=== PATIENT | female | born 1950 | race Caucasian/White ===

== ENCOUNTER 2018-03-25 13:49 | Outpatient (CLI) | payer MEDICARE, BC, SELFPAY ==
[2018-03-25 14:20] LABS: HCT 43.4 % (36.0-46.0); HGB 14.5 g/dL (12.0-15.5); Mean Corp. HGB Concentration 33.4 g/dL (32.0-36.0); Mean Corpuscular Hemoglobin 31.9 pg (27.0-33.0); Mean Corpuscular Volume 95.4 fL (80-95); Mean Platelet Volume 11.6 fL (8.0-11.0); Platelet Count 173 x1000/uL (130-400); RBC 4.55 m/cumm (4.00-5.20); RBC Distribution Width 12.3 % (11.7-14.6)
[2018-03-25 15:39] LABS: ALT 20 U/L (12-78); AST 17 U/L (15-37); Albumin 4.6 g/dL (3.4-5.0); Alkaline Phosphatase 77 U/L (46-116); Anion Gap 9.1 mmol/L (3-11); BUN 17 mg/dL (7-18); Bilirubin, Total 0.5 mg/dL (0.2-1.0); CO2 28.9 mmol/L (21.0-32.0); CREATININE 0.86 mg/dL (0.55-1.02); Calcium 9.5 mg/dL (8.5-10.1); Chloride 102 mmol/L (98-107); Cholesterol 226 mg/dL (50-200); Glucose 91 mg/dL (70-100); HDL Cholesterol 77 mg/dL (40-60); LDL CHOLESTEROL 123 mg/dL (<100); Potassium 4.7 mmol/L (3.5-5.1); Sodium 140 mmol/L (136-145); Total Protein 7.3 g/dL (6.4-8.2); Triglyceride 121 mg/dL (30-150)
[2018-03-27 08:01] LABS: Vitamin D 25 Total 67.7 ng/ml (30-100)
== END 2018-03-25 14:09 ==
PROVIDERS: PCP Student in an Organized Health Care Education/Training Program; Visit Provider Student in an Organized Health Care Education/Training Program
DX: E55.9 Vitamin D deficiency, unspecified (principal); D64.9 Anemia, unspecified; E78.5 Hyperlipidemia, unspecified; E86.0 Dehydration
CPT/HCPCS: 80053; 80061; 82306; 83721; 85027; 84443

== ENCOUNTER → 2019-01-23 09:13 | Outpatient (BNVA) | payer MEDICARE, BC, SELFPAY | PROVIDERS: PCP Student in an Organized Health Care Education/Training Program; Referring Provider Student in an Organized Health Care Education/Training Program; Visit Provider Physical Therapy Assistant | DX: Z12.11 Encounter for screening for malignant neoplasm of colon (principal); Z86.010 Personal history of colon polyps ==

== ENCOUNTER 2019-02-06 10:02 | Day surgery (SDC) | payer MEDICARE, BC, SELFPAY ==
[2019-02-06 10:19] VITALS: BP 108/64; PULSE 70; RESP 16; TEMP 36; O2SAT 100
[2019-02-06] MEDS: Lactated Ringers 1,000 ML 80 ML IV (11:12)
--- NOTE | 2019-02-06 11:52 | BOWEL_PTH ---
PATIENT: Adrianna Tomlin LOC: [facility] U#:[id number] AGE/SX: 68/F ROOM: RE02/06/[address]: Ca Live MD : 1950 BED: DIS: 02/06/2019 SPEC #: [id number] RECD: 02/06/19 12:55 STATUS: ELAN REQ #: [id number] CHONG: 02/06/19 11:[address]: Ca Live DEPT: Surgical Specimen RECD BY: Jesika Renner ENTERED: 02/06/19 12:56 SP TYPE: Bowel OTHR DR: Sheila Shah DO Tissues: 1 - BIOPSY BOWEL Procedures: GROSS AND MICRO LEVEL 4 Comments: [id number]
--- NOTE | 2019-02-06 12:15 | W.PM.DSUDISC ---
Discharge Plan Disposition Patient Disposition: HOME Condition: Good Discharge Details Reason For Visit: Colonoscopy Attending Provider: Ca Live Primary Care Provider: Sheila Shah Home Meds and New Rx's Prescriptions: Continued cholecalciferol (vitamin D3) 1,000 UNIT capsule 1,000 unit PO DAILY RF: 0 Varicella-Zoster Ge/As01b/Pf [Shingrix Vial Kit] 50 MCG INJ 50 mcg IM ONCE Qty: 1 RF: 0 lisinopril 10 mg tablet 5 mg PO DAILY 180 Days Qty: 90 RF: 0 Discharge Instructions Additional Instructions: Findings: One small polyp was removed. My office will contact you with biopsy results. Follow up: Plan for a colonoscopy in 5 years Please call if you develop: fevers >101.5 Nausea or Vomiting Abdominal pain that is not transient DAY SURGERY UNIT POST COLONOSCOPY INSTRUCTIONS 1. Because there will be medication in your system for the next 24 hours, you may feel a little sleepy. Your coordination will be affected. Therefore: a. Do not drive or operate dangerous equipment for 24 hours. b. Do not drink alcohol beverages for 24 hours (not even beer). c. Plan to go home and rest for the day. 2. Generally there are no restrictions on your activity after a day or so has gone by, but you may feel a bit fatigued for a few days. 3 After you arrive home you may have a light meal and return to a normal diet as you can tolerate it without feeling sick to your stomach. 4. After surgery, you may feel pain or discomfort. This should be only transient, but if it persists please contact your doctor. 5. If there are any questions regarding the findings of your procedure, please feel free to contact your doctor. 6. If you are unable to contact your doctor with a problem, contact the hospital at [phone]. 7. Continue all your regular medications unless directed otherwise. I understand the above instructions and have no questions. Signature of Patient or Responsible Adult Escort Date/Time Name of Responsible Adult Escort Signature of Nurse Date/Time Activity:: Activity as Tolerated Diet:: As Tolerated Discharge Orders Discharge Orders: Discharge Order (Routine); Ordered 02/06/19 Ordered By: Ca Live DS: Diagnosis Discharge Diagnosis (1) Colon polyp: Status: Acute
[2019-02-06 12:38] VITALS: BP 127/66; PULSE 65; RESP 16; TEMP 36.1; O2SAT 100
--- NOTE | 2019-02-09 10:01 | COLE_ITS ---
DATE OF PROCEDURE: February 06, 2019 PREOPERATIVE DIAGNOSIS: History of colon polyp. POSTOPERATIVE DIAGNOSIS: Colon polyp. PROCEDURE: Colonoscopy with polypectomy. SURGEON: Ca Live M.D. ANESTHESIA: General. INDICATIONS: This is a 68-year-old woman whose last colonoscopy in 2013 showed a polyp. She has no family history of colon cancer and is asymptomatic. PROCEDURE: She was placed in the left Gonzalez position. Propofol was titrated to sedation. Digital re ctal examination revealed no abnormalities. The scope was advanced to the cecum without difficulty. The ileocecal valve and appendiceal orifice were clearly identified. The scope was slowly withdrawn with no abnormalities seen within the ascending or transverse colon. In the proximal descending col on there was a < 1 cm polyp that was removed with snare polypectomy with cautery and retrieved for pa thology. No other abnormalities were seen throughout the descending, sigmoid colon or rectum, includ ing on retroflex view. She tolerated the procedure well and was stable to recovery. She will need a follow-up colonoscopy again in five years. cc: Sheila Shah D.O.
== END 2019-02-06 13:35 | disposition home or self-care (01) ==
PROVIDERS: PCP Student in an Organized Health Care Education/Training Program; Visit Provider Surgery
PROC: 0DJD8ZZ Inspection of Lower Intestinal Tract, Via Natural or Artificial Opening Endoscopic (ICD-10-PCS; CPT 45378; principal; 2019-02-06 11:30)
DX: Z12.11 Encounter for screening for malignant neoplasm of colon (principal); D12.4 Benign neoplasm of descending colon; Z86.010 Personal history of colon polyps; I10 Essential (primary) hypertension
CPT/HCPCS: 45385; 88305; J2405

== ENCOUNTER 2019-04-20 01:26 | Outpatient (CLI) | payer MEDICARE, BC, SELFPAY ==
--- NOTE | 2019-04-20 09:13 | DI.US_ITS ---
EXAM: US HERNIA CLINICAL HISTORY: evaluate for size, risk; r/o acute pathology, UMBILICAL HERNIA K42.9 TECHNIQUE: Ultrasound performed using standard protocol. COMPARISON: No exams were available for comparison FINDINGS: No hernia is demonstrated on the images provided. The umbilical region was scanned.
== END 2019-04-20 01:46 ==
PROVIDERS: PCP Student in an Organized Health Care Education/Training Program; Visit Provider Student in an Organized Health Care Education/Training Program
DX: K42.9 Umbilical hernia without obstruction or gangrene (principal)
CPT/HCPCS: 76857

== ENCOUNTER 2020-09-30 16:20 | Outpatient (CLI) | payer MEDICARE, BC, SELFPAY ==
--- NOTE | 2020-09-30 16:15 | RT.EKG_ITS ---
APPROVED REPORT Exam: Resting ECG Reason for Exam: palpitations, breathlessness Patient Location: O HR:77 bpm ECG Measurements Heart Rate 77 AXIS ND 141 P 76 QRSd 94 QRS 55 QT 389 T 29 QTc 441 Conclusion Sinus rhythm...normal P axis, V-rate 60- 99 Multiple ventricular premature complexes...V complexes w/ short R-R intervls Probable left ventricular hypertrophy...multiple LVH criteria
== END 2020-09-30 16:21 | disposition home or self-care (01) ==
LOC: DI.KIM 16:22
PROVIDERS: PCP Student in an Organized Health Care Education/Training Program; Visit Provider Student in an Organized Health Care Education/Training Program
DX: R00.2 Palpitations (principal); R06.02 Shortness of breath
CPT/HCPCS: 93010

== ENCOUNTER 2020-10-26 10:25 | Outpatient (CLI) | payer MEDICARE, BC, SELFPAY ==
--- NOTE | 2020-11-10 12:29 | ZIOP_ITS ---
Date of service: 11/10/20 Time of Service: 12:29 14 Day [employer] Supervisor Referring Provider:: Shayna Indications:: palp Note: This is a 14-day monitor order for indication of palpitations. ?The patient was in normal sinus rhythm for the majority the recording with an average heart rate of 63 bpm. ?The patient had 23 brief runs of supraventricular tachycardia with the longest lasting 27 beats. None of these were recorded as symptomatic. ?The patient had no episodes of ventricular tachycardia and rare PVCs/PACs ?There were no episodes of atrial fibrillation, no pauses greater than 3 seconds and no evidence of high degree heart block. ?There were no patient recorded events.
== END 2020-10-26 10:26 | disposition home or self-care (01) ==
LOC: RT 10:29
PROVIDERS: PCP Student in an Organized Health Care Education/Training Program; Visit Provider Student in an Organized Health Care Education/Training Program
DX: I49.8 Other specified cardiac arrhythmias (principal)
CPT/HCPCS: 93246

== ENCOUNTER 2020-11-10 12:29 | Outpatient (CLI) | payer MEDICARE, BC, SELFPAY | END 2020-11-10 12:30 | LOC: CARDO 11-21 16:15 | PROVIDERS: PCP Student in an Organized Health Care Education/Training Program; Referring Provider Student in an Organized Health Care Education/Training Program; Visit Provider Internal Medicine Cardiovascular Disease | DX: I49.8 Other specified cardiac arrhythmias (principal); I47.1 Supraventricular tachycardia | CPT/HCPCS: 93248 ==

== ENCOUNTER 2020-11-15 02:42 | Outpatient (CLI) | payer MEDICARE, BC, SELFPAY ==
--- NOTE | 2020-11-15 06:45 | DI.MAMMO_ITS ---
Exam(s) MAMMO SCREENING EXAM: MAMMO SCREENING CLINICAL HISTORY: screening,z12,39 TECHNIQUE: Mammograms were interpreted according to the usual protocol including computer analysis w [facility] CAD system, tomosynthesis and C-view imaging. COMPARISON: FINDINGS: The breasts are heterogeneously dense. No dominant mass or clumped microcalcification is identified in either breast. The current examination is compared with previous examinations including October 2017 and there has been no gross interval change in appearance in comparison with the prior studies. IMPRESSION: No specific evidence of malignancy at this time. Routine screening examinations are suggested at yea rly intervals in this age group according to the ACS ACR guidelines. BI-RADS Category 1 - Negative Breast Density - Category C - Heterogeneously dense
--- NOTE | 2020-11-15 09:35 | DI.US_ITS ---
APPROVED REPORT EXAM: Comprehensive 2D, Doppler, and color-flow Echocardiogram Patient Location: Out-Patient [facility] Scientist: Elva Champagne RDCS (AE) Indications: Evaluate Cardiac function, HTN, SOB Other Information Study Quality: Good Conclusion Left Ventricle : The left ventricle is normal size. The left ventricular systolic function is normal. The left ventricular ejection fraction is within the normal range. There is normal left ventricular wall thickness. There is normal LV segmental wall motion. The left ventricular diastolic function is normal. There is no ventricular septal defect visualized. Right Ventricle : The right ventricle is normal size. The right ventricular systolic function is norm al. The RVSP is 28.9 mmHg. Atria : The left atrium size is normal. The right atrium size is normal. Aortic Valve : The aortic valve is normal in structure. Aortic valve is trileaflet. Mild aortic regur gitation. There is no aortic valvular stenosis. Mitral Valve : The mitral valve is normal in structure. Mild mitral regurgitation. No evidence of cassia ral valve stenosis. Great Vessels : The aortic root is normal in size. The ascending aorta is normal in size. Aortic arch is normal in caliber. IVC is normal in size and collapses >50% with inspiration. Please see remainder of study for further details Wall motion Left Ventricle The left ventricle is normal size. The left ventricular systolic function is normal. The left ventric ular ejection fraction is within the normal range. There is normal left ventricular wall thickness. T here is normal LV segmental wall motion. The left ventricular diastolic function is normal. There is no ventricular septal defect visualized. LVEF is 60%. Right Ventricle The right ventricle is normal size. The right ventricular systolic function is normal. The RVSP is 28 .9 mmHg. Atria The left atrium size is normal. The right atrium size is normal. The interatrial septum is intact wit h no evidence for an atrial septal defect. Aortic Valve The aortic valve is normal in structure. Aortic valve is trileaflet. There is no aortic valvular sten osis. Mild aortic regurgitation. Mitral Valve The mitral valve is normal in structure. No evidence of mitral valve stenosis. Mild mitral regurgitat ion. Moderate mitral valve prolapse. Tricuspid Valve The tricuspid valve is normal in structure. There is no tricuspid valve stenosis. Mild tricuspid regu rgitation. Pulmonic Valve The pulmonary valve is normal in structure. There is no pulmonic valvular stenosis. Trace pulmonic re gurgitation. Great Vessels The aortic root is normal in size. The ascending aorta is normal in size. Aortic arch is normal in ca liber. IVC is normal in size and collapses >50% with inspiration. Pericardium There is no pericardial effusion. 2D Dimensions IVSD d PLAX 0.63 cm F: 0.6-1.0 LV Vol A2C d MOD 80.7 mL LVPW d PLAX 0.71 cm F: 0.6 - 1.0 LV Vol A4C d MOD 87.8 mL LVID d PLAX 4.36 cm F: 3.8 - 5.2 LA vol/ BSA A2C s A-L 28.5 mL/m2 LVDs 2.85 cm F: 2.2 - 3.5 LA vol/ BSA A4C s A-L 21.9 mL/m2 Ao Root d 3.04 cm F: 2.7 - 3.3 LA Vol/ BSA Biplane s A-L 28.0 mL/m2 RA Area A4C 12.10 cm2 LA Area A4C s MOD 12.77 cm2 RA Vol/ BSA A4C s A-L 20.7 mL/m2 LA Area A2C s MOD 16.30 cm2 Ao Asc Diam d 3.04 cm F: 2.3 - 3.1 LV EF A4C MOD 60.0 % LV EF Teichholz 62.7 % LV EF A2C MOD 60.6 % LVEF (Kelley's) 58.11 % F: 54 - 74 LV EF Biplane MOD 58.1 % LV Volume 70.28 mL F: 46 - 106 SV 49.64 mL LV Volume Index 45.34 mL/m2 F: 29 - 61 SV Index 32.04 mL/m2 LV Vol Biplane MOD 85.4 mL FS 33.65 % M-Mode TAPSE 2.37 cm (M/F) >1.7 LV Diastology MV E' medial 0.046 (>0.07 m/s) E/A Ratio 0.8 LV E/e MED 14.25 (<14) MV E Vmax 0.66 (0.4-1.3 m/s) MV E' lateral 0.065 (>0.1 m/s) MV A Vmax 0.85 (0.4-1.3 m/s) LV E/e LAT 10.20 (<14) MV E/A Ratio 0.74 MV E/E' medial 14.29 MV E/E' lateral 10.24 Aortic Valve LVOT Area 2.54 cm2 AoV Area Vmax 2.02 cm2 LVOT Vmax 0.88 m/s AoV Area/ BSA (Vmax) 1.30 cm2/m2 LVOT Mean Alex. 0.54 m/s BO Mean Alex. 1.81 cm2 LVOT Peak Grad 3.1 mmHg BO Mean Alex. Index 1.17 cm2/m2 LVOT Mean Grad 1.4 mmHg AR DT 4429 msec LVOT VTI 0.221 m AR PHT 1285 msec LVOT Diam s 1.75 cm AoV Vmax 1.10 m/s Velocity Ratio 0.80 AoV Mean Alex. 0.76 m/s AoV Peak Grad 4.9 mmHg LVOT SV 55.91 mL AoV Mean Grad 2.6 mmHg AoV VTI 0.272 m AoV Area VTI 2.06 cm2 AoV Area/ BSA (VTI) 1.33 cm/m2 Mitral Valve MV DT 413 (160-240 msec) MR Vmax 7.04 m/s MV PHT 120 msec MR VTI 2.440 m MV Area PHT 1.84 cm2 MR Peak Grad 198.2 mmHg MV VTI 0.270 m MR Mean Grad 151.1 mmHg MV VTI Annulus 0.275 m MR PISA Radius 0.43 cm MV Area VTI 2.10 (4.0-6.0 cm2) MR EROA 0.06 cm2 MR Aliasing Velocity 0.35 m/s MR PISA 1.14 cm2 Pulmonary Valve PV Vmax 0.57 (0.5-1.5 m/s) RVOT Peak Gr. 1.12 mmHg PV Peak Grad 1.3 mmHg RVOT Mean Gr. 0.60 mmHg PV Mean Grad 0.8 mmHg RVOT VTI 0.132 m PV VTI 0.143 m RVOT Vmax 0.53 m/s Tricuspid Valve TR Peak Grad 25.8 mmHg TR Vmax 2.54 m/s RA Pressure 3.00 mmHg RVSP (TR) 28.9 mmHg
== END 2020-11-15 03:02 ==
PROVIDERS: PCP Student in an Organized Health Care Education/Training Program; Visit Provider Student in an Organized Health Care Education/Training Program
DX: I10 Essential (primary) hypertension (principal); R06.02 Shortness of breath; Z12.39 Encounter for other screening for malignant neoplasm of breast; I08.3 Combined rheumatic disorders of mitral, aortic and tricuspid valves
CPT/HCPCS: 77063; 77067; 93306

== ENCOUNTER 2021-02-07 03:32 | Outpatient (CLI) | payer MEDICARE, BC, SELFPAY ==
[2021-02-07 16:16] LABS: HCT 40.4 % (36.0-46.0); HGB 13.3 g/dL (11.2-15.7); MCHC 32.9 % (32.0-36.0); MCV 94.2 fL (80-95); Platelet Count 168 10^3/uL (130-400); RBC 4.29 10^6/uL (3.93-5.22); RDW 12.1 % (11.7-14.6); RDW-SD 42.2 fL; WBC 4.55 10^3/uL (4.4-10.8)
[2021-02-07 17:54] LABS: BUN 16 mg/dL (7-18); CREATININE 0.8 mg/dL (0.55-1.02); Calcium 9.2 mg/dL (8.5-10.1); Calculated LDL 122 mg/dL (<100); Chloride 103 mmol/L (98-107); Cholesterol 216 mg/dL (<200); Glucose 86 mg/dL (74-106); HDL Cholesterol 60 mg/dL (40-60); Potassium 4.4 mmol/L (3.5-5.1); Sodium 141 mmol/L (136-145); TSH (W/Ref FT4) 3.03 uIU/mL (0.36-3.74); Triglyceride 174 mg/dL (<150); Vitamin B12 243 pg/mL (193-986)
[2021-02-07 18:38] LABS: Folate > 20.0 ng/mL (8.6-20.0)
[2021-02-09 00:32] LABS: Vitamin D 25 Total 71.5 ng/mL (30-100)
== END 2021-02-07 03:33 | disposition home or self-care (01) ==
LOC: LBO 03:32
PROVIDERS: PCP Student in an Organized Health Care Education/Training Program; Visit Provider Student in an Organized Health Care Education/Training Program
DX: I10 Essential (primary) hypertension (principal); E78.5 Hyperlipidemia, unspecified; R06.02 Shortness of breath; E46 Unspecified protein-calorie malnutrition; D64.9 Anemia, unspecified; M81.0 Age-related osteoporosis without current pathological fracture
CPT/HCPCS: 36415; 80048; 80061; 82306; 85027; 82607; 82746; 84443

== ENCOUNTER 2021-06-22 01:35 | Outpatient (CLI) | payer MEDICARE, BC, SELFPAY ==
--- NOTE | 2021-06-22 15:17 | DI.DEXA_ITS ---
Exam(s) XR DEXA BONE DENSITY W/WO GAGANDEEP EXAM: XR DEXA BONE DENSITY W/WO GAGANDEEP CLINICAL HISTORY: evaluate severity of osteoporosis,m81.0 TECHNIQUE: COMPARISON: No exams were available for comparison FINDINGS: DEXA scan was performed according to the usual protocol. Please see the accompanying data sheets. F indings for left hip scanning are T-score -3.2 with left femoral neck T-score -3.2. Lumbar spine scanning shows T-score -1.6. Left forearm scanning shows T-score -3.7. IMPRESSION: The measurements are consistent with osteoporosis according to WHO criteria. The lateral vertebral s canogram shows no evidence of a vertebral compression fracture. RADIATION DOSE DELIVERED: Total DLP
== END 2021-06-22 01:55 ==
PROVIDERS: PCP Student in an Organized Health Care Education/Training Program; Visit Provider Student in an Organized Health Care Education/Training Program
DX: M81.0 Age-related osteoporosis without current pathological fracture (principal); Z13.820 Encounter for screening for osteoporosis
CPT/HCPCS: 77080

== ENCOUNTER 2021-09-05 02:40 | Outpatient (CLI) | payer MEDICARE, BC, SELFPAY ==
[2021-09-05 16:55] LABS: Calculated LDL 113 mg/dL (<100); Cholesterol 195 mg/dL (<200); HDL Cholesterol 69 mg/dL (40-60); Triglyceride 66 mg/dL (<150)
== END 2021-09-05 02:41 | disposition home or self-care (01) ==
LOC: LBO 02:40
PROVIDERS: PCP Student in an Organized Health Care Education/Training Program; Visit Provider Student in an Organized Health Care Education/Training Program
DX: I10 Essential (primary) hypertension (principal)
CPT/HCPCS: 36415; 80061

== ENCOUNTER 2022-07-04 03:11 | Outpatient (CLI) | payer MEDICARE, BC, SELFPAY ==
[2022-07-04 10:21] LABS: Anion Gap 7.2 mmol/L (3-11); BUN 16 mg/dL (7-18); CO2 29.8 mmol/L (21.0-32.0); CREATININE 0.9 mg/dL (0.55-1.02); Calcium 9.4 mg/dL (8.5-10.1); Calculated LDL 139 mg/dL (<100); Chloride 104 mmol/L (98-107); Cholesterol 234 mg/dL (<200); Estimated GFR 68.77 (mL/min/1.73m2); Glucose 98 mg/dL (74-106); HDL Cholesterol 84 mg/dL (40-60); Potassium 4.6 mmol/L (3.5-5.1); Sodium 141 mmol/L (136-145); Triglyceride 55 mg/dL (<150)
== END 2022-07-04 03:12 | disposition home or self-care (01) ==
LOC: LBO 03:14
PROVIDERS: PCP Student in an Organized Health Care Education/Training Program; Visit Provider Student in an Organized Health Care Education/Training Program
DX: I10 Essential (primary) hypertension (principal); R79.89 Other specified abnormal findings of blood chemistry; M81.0 Age-related osteoporosis without current pathological fracture
CPT/HCPCS: 36415; 80048; 80061

== ENCOUNTER → 2022-12-26 01:47 | Outpatient (CLI) | payer MEDICARE, BC, SELFPAY ==
--- NOTE | 2022-12-26 07:30 | DI.MAMMO_ITS ---
Exam(s) MAMMO SCREENING EXAM: MAMMO SCREENING CLINICAL HISTORY: screening,z12.39. TECHNIQUE: Bilateral full field digital CC and MLO mammographic images were obtained with 3D tomosyn thesis and utilizing computer aided detection (CAD). COMPARISON: Prior mammograms were reviewed. FINDINGS: The fibroglandular tissue pattern is again noted be moderately dense. There are no CAD designations. New right breast findings. In the left breast on the CC view there is asymmetric density measuring 5 x 4 mm located 5 cm in from the nipple, lateral of center. This is more evident than on prior mammograms. Spot view recommende d. There are no malignant-appearing microcalcification groups in this region or elsewhere in either [address] There is no significant architectural distortion nor skin thickening-retraction. IMPRESSION: 1. No radiographic evidence of malignancy in the right breast. 2. Asymmetric density-possible nodule the left breast. Spot compression CC view and ultrasound arnie mmended. BI-RADS Category 0 - Assessment Incomplete: Need additional imaging evaluation Breast Density - Category C - Heterogeneously dense Breast density Category C or D implies that the patient has dense breast tissue. Dense breast tissue can make it harder to find cancer on a mammogram. Dense breast tissue is also associated with an incr eased risk of breast cancer. This information about the result of the mammogram report was provided to the patient to raise their awareness. Use this report when you speak with the patient about their risks for breast cancer, which includes their family history. At that time, you may recommend additional screening tests (Ultrasoun d or MRI) as these tests may add significant information. A negative radiographic report should not delay biopsy if a dominant or clinically suspicious mass is present. Up to ten percent of cancers are not identified on mammography. A negative report may reinforce clinical impression. Adenosis and dense breasts may obscure an underlying neoplasm. False positive reports average 6 to 10%. Patient will receive a letter notifying them of these results.
== END ==
PROVIDERS: PCP Student in an Organized Health Care Education/Training Program; Visit Provider Student in an Organized Health Care Education/Training Program
DX: Z12.31 Encounter for screening mammogram for malignant neoplasm of breast (principal)
CPT/HCPCS: 77063; 77067

== ENCOUNTER → 2023-01-07 01:35 | Outpatient (CLI) | payer MEDICARE, BC, SELFPAY ==
--- NOTE | 2023-01-07 10:20 | DI.MAMMO_ITS ---
Exam(s) MAMMO SCREEN CALL BACK UNI US BREAST LT COMPLETE EXAM: MAMMO SCREEN CALL BACK UNI CLINICAL HISTORY: F/U MAMMO, ASYMMETRIC DENSITY POSSIBLE NODULE. TECHNIQUE: Unilateral spot mammographic images obtained with 3D tomosynthesisand utilizing computer aided detection (CAD). . Complete left breast Ultrasound was also performed, including all 4 quadrants, the retroareolar regio n, and the ipsilateral axilla. COMPARISON: Prior mammograms were reviewed. This additional imaging was performed due to findings described on the recent screening mammogram of 12/26/2022. FINDINGS: DIAGNOSTIC MAMMOGRAM: Additional mammographic views performed todayrender this area less concerning. COMPLETE LEFT BREAST ULTRASOUND: Ultrasound performed today reveals no evidence of solid or significant cystic lesions in all 4 quadra nts nor in the retroareolar region. Scanning of the ipsilateral axilla reveals no significant adenopathy. IMPRESSION: 1. No radiographic evidence of malignancy in left breast. 2. Negative complete left breast ultrasound Appropriate follow-up is to keep this patient on her yearly mammogram schedule, with earlier imaging if a self detected breast change is noted.. The patient was informed of these findings and recommendations by myself prior to leaving the [facility] ent today. BI-RADS Category 2 - Benign Findings Breast Density - Category C - Heterogeneously dense Breast density Category C or D implies that the patient has dense breast tissue. Dense breast tissue can make it harder to find cancer on a mammogram. Dense breast tissue is also associated with an incr eased risk of breast cancer. This information about the result of the mammogram report was provided to the patient to raise their awareness. Use this report when you speak with the patient about their risks for breast cancer, which includes their family history. At that time, you may recommend additional screening tests (Ultrasoun d or MRI) as these tests may add significant information. A negative radiographic report should not delay biopsy if a dominant or clinically suspicious mass is present. Up to ten percent of cancers are not identified on mammography. A negative report may reinforce clinical impression. Adenosis and dense breasts may obscure an underlying neoplasm. False positive reports average 6 to 10%. Patient will receive a letter notifying them of these results.
== END ==
PROVIDERS: PCP Student in an Organized Health Care Education/Training Program; Visit Provider Student in an Organized Health Care Education/Training Program
DX: Z12.31 Encounter for screening mammogram for malignant neoplasm of breast (principal); R92.8 Other abnormal and inconclusive findings on diagnostic imaging of breast
CPT/HCPCS: 76642; 77063; 77067

== ENCOUNTER → 2023-07-04 04:36 | Outpatient (CLI) | payer MEDICARE, BC, SELFPAY ==
--- NOTE | 2023-07-04 07:15 | DI.DEXA_ITS ---
Exam(s) XR DEXA BONE DENSITY W/WO GAGANDEEP EXAM: XR DEXA BONE DENSITY W/WO GAGANDEEP CLINICAL HISTORY: evaluate Tx/Rx (started ),osteoporosis,m81.0 TECHNIQUE: COMPARISON: CR XR DEXA BONE DENSITY W/WO GAGANDEEP from 06/22/2021 FINDINGS: Lateral Spine Image: Unremarkable. No compression deformities identified. Left hip: Total T-Score: -3.3. This compares to -3.2 on the prior examination. Total Z-Score: -1.7 T- and Z-scores: Findings are consistent with osteoporosis. Lumbar Spine: Total T-Score: -1.4. Compares to -1.6 on the prior examination. Total Z-Score: 0.8 T- and Z-scores: Findings are consistent with osteopenia. IMPRESSION: Osteoporosis is again seen in the left hip.
== END ==
PROVIDERS: PCP Student in an Organized Health Care Education/Training Program; Visit Provider Student in an Organized Health Care Education/Training Program
DX: M81.0 Age-related osteoporosis without current pathological fracture (principal); Z13.820 Encounter for screening for osteoporosis
CPT/HCPCS: 77080

== ENCOUNTER 2023-08-29 05:10 | Outpatient (CLI) | payer MEDICARE, BC, SELFPAY ==
[2023-08-29 13:03] LABS: Anion Gap 9.9 mmol/L (3-11); BUN 17 mg/dL (7-18); CO2 29.1 mmol/L (21.0-32.0); CREATININE 0.8 mg/dL (0.55-1.02); Calcium 9.3 mg/dL (8.5-10.1); Calculated LDL 127 mg/dL (<100); Chloride 102 mmol/L (98-107); Cholesterol 221 mg/dL (<200); Estimated GFR 78.72 (mL/min/1.73m2); Glucose 95 mg/dL (74-106); HDL Cholesterol 84 mg/dL (40-60); Potassium 4.7 mmol/L (3.5-5.1); Sodium 141 mmol/L (136-145); Triglyceride 53 mg/dL (<150)
[2023-08-29 13:17] LABS: Vitamin D 25 Total 62.1 ng/mL (30-100)
== END 2023-08-29 05:11 | disposition home or self-care (01) ==
LOC: LBO 05:10
PROVIDERS: PCP Student in an Organized Health Care Education/Training Program; Visit Provider Student in an Organized Health Care Education/Training Program
DX: I10 Essential (primary) hypertension; M81.0 Age-related osteoporosis without current pathological fracture; D64.9 Anemia, unspecified; Z13.220 Encounter for screening for lipoid disorders
CPT/HCPCS: 36415; 80048; 80061; 82306; 84443

== ENCOUNTER → 2024-01-27 09:54 | Outpatient (BNVA) | payer MEDICARE, BC, SELFPAY | PROVIDERS: PCP Student in an Organized Health Care Education/Training Program; Referring Provider Student in an Organized Health Care Education/Training Program; Visit Provider Surgery | DX: Z12.11 Encounter for screening for malignant neoplasm of colon (principal); Z86.0101 Personal history of adenomatous and serrated colon polyps; I10 Essential (primary) hypertension; E78.5 Hyperlipidemia, unspecified; M81.0 Age-related osteoporosis without current pathological fracture; E55.9 Vitamin D deficiency, unspecified; C43.71 Malignant melanoma of right lower limb, including hip | CPT/HCPCS: 99203 ==

== ENCOUNTER 2024-02-03 11:33 | Day surgery (SDC) | payer MEDICARE, BC, SELFPAY ==
--- NOTE | 2024-02-02 19:01 | W.PM.DSUDISC ---
Date of service: 02/03/24 Time of Service: 14:01 Discharge Plan Disposition Patient Disposition: Home Condition: Good Discharge Details Reason For Visit: screening colonoscopy Attending Provider: David Sterling Primary Care Provider: Sheila Shah Home Meds and New Rx's Prescriptions: Continued multivitamin Tablet 1 tab PO DAILY alendronate 70 mg tablet 70 mg PO QWEEK Qty: 52 2RF Rx Instructions: Continue with weekly dosing ondansetron 4 mg tablet,disintegrating 4 mg PO Q8H Qty: 7 0RF cholecalciferol (vitamin D3) 1,000 UNIT capsule 1,000 unit PO DAILY Discontinued polyethylene glycol 3350 17 gram/dose powder 238 g PO ONCE Qty: 238 0RF Rx Instructions: take per colonoscopy instructions bisacodyl [Dulcolax (bisacodyl)] 5 mg tablet,delayed release (DR/EC) 5 mg PO ONCE Qty: 4 0RF Rx Instructions: take per colonoscopy instructions Discharge Instructions Instructions: Diverticulosis Additional Instructions: Adrianna was very nice meeting you today, and I hope you are comfortable during the procedure, make a quick recovery. I did not find any tumors or polyps during today's colonoscopy. Incidentally, you do have a little bit of diverticulosis. Diverticula are little weak spots in the muscular part of the colon wall, this causes the inside lining to approach outwards. The condition of having these little pockets is known as diverticulosis, and if they become infected or inflamed and you experience pain, then we typically refer to that as diverticulitis. Hopefully, years never bother you. I have attached some basic information here about general approaches to diverticulosis. If you have any questions at all, please do not hesitate to ask. In light of the polyps that you had removed previously, I do recommend another 5-year interval for your next colonoscopy. 1. If tolerated, consume a soft, low fiber diet for 1-2 days. 2[address] Do not drive, drink alcohol, operate machinery, make critical decisions, or do activities that require coordination or balance for 24 hours. 3. Because air was put into your colon during the procedure, expelling air from your rectum (passing gas or farting) is normal. 4. You may not have a bowel movement for 1-3 days because of the colonoscopy prep. This is normal. 5. Go directly to the emergency room if you notice any of the following: Develop chills (warm to touch), or if you have a thermometer and your temperature is above 101 Difficulty breathing or difficultly swallowing Persistent vomiting Severe abdominal pain, other than gas cramps Severe chest pain Black, tarry stools Any bleeding ? exceeding one tablespoon 6. Call your physician if the site where your intravenous was started becomes red, swollen, painful, and warm to touch. 7. Your physician has reviewed your pre-procedure medications. Please continue to take those medications as previously ordered. You will be given specific information/education regarding any changes to your medications before leaving. Activity:: Activity as Tolerated Diet:: As Tolerated Discharge Orders Discharge Orders: Discharge Order (Routine); Ordered 02/02/24 Ordered By: David Sterling DS: Diagnosis Discharge Diagnosis (1) Encounter for screening colonoscopy: Status: Acute Asessment and Plan: Negative screening colonoscopy today, based on tubular adenoma in the past, recommend another 5-year interval for the next colonoscopy
--- NOTE | 2024-02-02 19:03 | COLE_ITS ---
Date of service: 02/03/24 Time of Service: 14:02 Colonoscopy Report Date of procedure: 02/03/24 Pre-op diagnosis general: screening colonoscopy Post-op diagnosis procedure note: other (Diverticulosis) Procedure: colonoscopy Surgeon: David Sterling Anesthesia Type: General:No Airway Estimated blood loss (mL): 0 Pathology: none sent Complications: None Disposition: same day Indications: Adrianna is a 73 year old woman with a history of adenomatous polyps. She needs a screening colonoscopy Prep: Miralax/Dulcolax Procedure Start Time: 13:37 Procedure End Time: 13:55 Retraction Time: 8 Findings: Sigmoid diverticulosis Procedure Description: After the induction of anesthesia, and with the patient in left lateral decubitus position, I began by performing an external anorectal exam.? Perineum and skin were normal, as was the anal verge.? There was no evidence of external hemorrhoids.? Next, I performed a digital rectal exam.? I did not appreciate any abnormal findings.? Next, I advanced a colonoscope into the rectal vault.? I performed retroflexion.? This appeared normal.? Using insufflation, I then advanced the colonoscope beyond the rectal folds and into the sigmoid colon before advancing towards the cecum.? There is some sigmoid diverticulosis.? The scope was noted to be in the cecum by identification of the ileocecal valve and appendiceal orifice.? I then began withdrawing the colonoscope using repeated irrigation as necessary for full evaluation of the colonic mucosa. ?Once the scope was withdrawn to the level of the rectum, great care was taken to examine portions of the rectal folds.? I saw no signs of tumors or polyps. Finally, the scope was withdrawn and the patient was brought to the same-day surgery recovery unit as the anesthetic wore off. ?The findings and instructions were shared with the patient prior to discharge. [place] Bowel Prep [place] Bowel Prep Right Colon: 3 Left Colon: 3 Transverse Colon: 3 Total Score: 9
[2024-02-03] VITALS (10 sets, daily range): BP systolic 139–150; BP diastolic 63–79; PULSE 54–71; RESP 14–18; TEMP 36.1–36.6; O2SAT 97–100; BMI 21.7
[2024-02-03] MEDS: Lactated Ringers 1,000 ML 80 ML IV (12:05)
--- NOTE | 2024-02-03 12:12 | ANES.PREOP_ITS ---
General Info Date of Service Date Performed: 02/03/24 Height: 5 ft 2 in Weight: 53.9 kg Body Mass Index (BMI): 21.7 Surgical Procedure: Operation Date: 02/03/24 12:50 Proposed Procedure Side Surgeon p Colonoscopy David Sterling MD Meds Allergies and Home Medications Allergies Allergy/AdvReac Type Severity Reaction Status Date / Time amoxicillin Allergy Unknown Hives Verified 02/03/24 11:53 codeine AdvReac Unknown Nausea Verified 02/03/24 11:53 Home Medication ?Medication ?Instructions ?Recorded cholecalciferol (vitamin D3) 25 1,000 unit PO DAILY 09/06/17 mcg (1,000 unit) capsule multivitamin 1 tab PO DAILY 08/15/21 alendronate 70 mg tablet 70 mg PO QWEEK #52 tabs 09/05/23 ondansetron 4 mg disintegrating 4 mg PO Q8H #7 tabs 01/27/24 tablet Current Visit Medications: Current Medications Generic Name Dose Route Start Last Admin Trade Name Freq PRN Reason Stop Dose Admin Ringer's Solution 1,000 mls @ 80 mls/hr 02/03/24 06:00 02/03/24 12:05 IV 02/03/24 23:59 80 mls/hr INFUSION AUGUSTINE Administration IV Miscellaneous Supplies 1 each 02/03/24 06:00 Iv Access IV 02/03/24 23:59 DIRECTED AUGUSTINE Ondansetron HCl 4 mg 02/02/24 19:04 Ondansetron 4 Mg/2 Ml Vial IVP 03/03/24 19:03 Q4H PRN PRN Nausea / Vomiting Sodium Chloride 0 ml 02/03/24 06:00 Normal Saline Flush 10 Ml Syr IV 02/03/24 23:59 PRN PRN Sodium Chloride 0 ml 02/03/24 06:00 Normal Saline 10 Ml Vial IJ 02/03/24 23:59 DIRECTED PRN Sterile Water 0 ml 02/03/24 06:00 Water,Injection,Sterile 10 Ml Vial IJ 02/03/24 23:59 DIRECTED PRN PFSH Active Problems Active Problems: Problem Status Onset Code Encounter for screening colonoscopy Acute Z12.11 Sensorineural hearing loss, bilateral Acute H90.3 Vitamin D deficiency Acute 04/23/17 E55.9 Osteoporosis Acute 11/21/12 M81.0 Bilateral nonpulsatile tinnitus Acute H93.13 Tinnitus of both ears Acute H93.13 Hypertension Chronic 02/2018 I10 Encounter for screening and preventative care Chronic 08/2018 Z00.00 Umbilical hernia Acute K42.9 Melanoma in situ of right shoulder Acute D03.61 Melanoma of right lateral thigh Resolved 07/18/17 C43.71 Colon polyp Acute K63.5 Allergic rhinitis Acute 04/23/17 J30.9 Anemia Acute 04/23/17 D64.9 Hyperlipidemia Acute 04/23/17 E78.5 Medical History Medical History SOB (shortness of breath) on exertion Resolved.. Holter/Echo WNL .. New, 09/2020 .. Not consistent, but notable when out of breath with a usually normal activity. Hypertension resolved .. tolerated ACEi when needed Surgical History Surgical History S/P tonsillectomy History of melanoma excision (11/29/20) right posterior shoulder, right upper leg Total Hysterectomy (~2002) , Ectopic (~1972) Cyst Removal (~1979) (R)Breast Colonoscopy - MAC (02/05/14) [facility] Tobacco Smoking/Tobacco Use Status: Never Alcohol Alcohol Intake: never Substance Use Substance use: Never Substance use type: does not use Vital Signs and Lab Results Vital Signs Most Recent Vital Signs in EMR: Most Recent Vital Signs Temp Pulse Resp BP Pulse Ox 36.1 C L 59 L 16 139/63 100 02/03/24 11:56 02/03/24 11:56 02/03/24 11:56 02/03/24 11:56 02/03/24 11:56 Lab Results Blood Type / Crossmatch: No Data to Display Complete Blood Count: No Data to Display Complete Metabolic Panel: No Data to Display Liver Function Panel: No Data to Display Coagulation Panel: No Data to Display Cardiac Panel: No Data to Display Arterial Blood Gas: No Data to Display Venous Blood Gas: No Data to Display Pancreas Panel: No Data to Display Thyroid Panel: No Data to Display Infectious Disease: No Data to Display Blood Cultures: No Data to Display Toxicology Panel: No Data to Display Imaging and Studies Imaging and Studies Study information below may be from another EMR and interpreted by another provider. Please see original notes in EMR for more complete details. EKG Summary: Reviewed Echocardiogram Summary: Patient Name: Adrianna Tomlin Unit #: [id number] Loc: DI Ordering Provider: ChagojennySheila DO Status: REG CLI Primary Care Provider: Sheila Shah DO Date of Exam: 11/15/20 Sex: F Admission Date: 11/15/20 : 1950 Age: 70 APPROVED REPORT EXAM: Comprehensive 2D, Doppler, and color-flow Echocardiogram Patient Location: Out-Patient [facility] Operator: Elva Champagne RDCS (AE) Indications: Evaluate Cardiac function, HTN, SOB Other Information Study Quality: Good Conclusion Left Ventricle : The left ventricle is normal size. The left ventricular systolic function is normal. The left ventricular ejection fraction is within the normal range. There is normal left ventricular wall thickness. There is normal LV segmental wall motion. The left ventricular diastolic function is normal. There is no ventricular septal defect visualized. Right Ventricle : The right ventricle is normal size. The right ventricular systolic function is normal. The RVSP is 28.9 mmHg. Atria : The left atrium size is normal. The right atrium size is normal. Aortic Valve : The aortic valve is normal in structure. Aortic valve is trileaflet. Mild aortic regurgitation. There is no aortic valvular stenosis. Mitral Valve : The mitral valve is normal in structure. Mild mitral regurgitation. No evidence of mitral valve stenosis. Great Vessels : The aortic root is normal in size. The ascending aorta is normal in size. Aortic arch is normal in caliber. IVC is normal in size and collapses >50% with inspiration. Please see remainder of study for further details Wall motion Left Ventricle The left ventricle is normal size. The left ventricular systolic function is normal. The left ventricular ejection fraction is within the normal range. There is normal left ventricular wall thickness. There is normal LV segmental wall motion. The left ventricular diastolic function is normal. There is no ventricular septal defect visualized. LVEF is 60%. Right Ventricle The right ventricle is normal size. The right ventricular systolic function is normal. The RVSP is 28.9 mmHg. Atria The left atrium size is normal. The right atrium size is normal. The interatrial septum is intact with no evidence for an atrial septal defect. Aortic Valve The aortic valve is normal in structure. Aortic valve is trileaflet. There is no aortic valvular stenosis. Mild aortic regurgitation. Mitral Valve The mitral valve is normal in structure. No evidence of mitral valve stenosis. Mild mitral regurgitation. Moderate mitral valve prolapse. Tricuspid Valve The tricuspid valve is normal in structure. There is no tricuspid valve stenosis. Mild tricuspid regurgitation. Pulmonic Valve The pulmonary valve is normal in structure. There is no pulmonic valvular stenosis. Trace pulmonic regurgitation. Great Vessels The aortic root is normal in size. The ascending aorta is normal in size. Aortic arch is normal in caliber. IVC is normal in size and collapses >50% with inspiration. Pericardium There is no pericardial effusion. 2D Dimensions IVSD d PLAX 0.63 cm F: 0.6-1.0LV Vol A2C d MOD 80.7 mL LVPW d PLAX 0.71 cm F: 0.6 - 1.0LV Vol A4C d MOD 87.8 mL LVID d PLAX 4.36 cm F: 3.8 - 5.2LA vol/ BSA A2C s A-L28.5 mL/m2 LVDs 2.85 cm F: 2.2 - 3.5LA vol/ BSA A4C s A-L21.9 mL/m2 Ao Root d 3.04 cm F: 2.7 - 3.3LA Vol/ BSA Biplane s A-L 28.0 mL/m2 RA Area A4C12.10 cm2LA Area A4C s MOD 12.77 cm2 RA Vol/ BSA A4C s A-L 20.7 mL/m2LA Area A2C s MOD 16.30 cm2 Ao Asc Diam d 3.04 cm F: 2.3 - 3.1LV EF A4C MOD 60.0 % LV EF Teichholz 62.7 %LV EF A2C MOD 60.6 % LVEF (Kelley's)58.11 % F: 54 - 74LV EF Biplane MOD 58.1 % LV Fbvbss91.28 mL F: 46 - 001UU28.64 mL LV Volume Index45.34 mL/m2 F: 29 - 61SV Index32.04 mL/m2 LV Vol Biplane MOD 85.4 mL FS33.65 % M-Mode TAPSE 2.37 cm (M/F) >1.7 LV Diastology MV E' medial0.046 (>0.07 m/s)E/A Ratio 0.8 LV E/e MED14.25 (<14)MV E Vmax 0.66 (0.4-1.3 m/s) MV E' lateral0.065 (>0.1 m/s)MV A Vmax 0.85 (0.4-1.3 m/s) LV E/e LAT10.20 (<14)MV E/A Ratio 0.74 MV E/E' medial 14.29 MV E/E' ifhesxy02.24 Aortic Valve LVOT Area2.54 cm2AoV Area Vmax2.02 cm2 LVOT Vmax 0.88 m/sAoV Area/ BSA (Vmax)1.30 cm2/m2 LVOT Mean Alex.0.54 m/sAVA Mean Alex.1.81 cm2 LVOT Peak Grad 3.1 mmHgAVA Mean Alex. Index1.17 cm2/m2 LVOT Mean Grad 1.4 mmHgAR DT 4429 msec LVOT VTI0.221 mAR PHT 1285 msec LVOT Diam s 1.75 cm AoV Vmax1.10 m/s Velocity Ratio 0.80 AoV Mean Alex.0.76 m/s AoV Peak Grad4.9 mmHg LVOT SV 55.91 mL AoV Mean Grad2.6 mmHg AoV VTI0.272 m AoV Area VTI2.06 cm2 AoV Area/ BSA (VTI)1.33 cm/m2 Mitral Valve MV DT 413 (160-240 msec)MR Vmax 7.04 m/s MV SBD573 msecMR VTI 2.440 m MV Area PHT 1.84 cm2MR Peak Grad 198.2 mmHg MV VTI 0.270 mMR Mean Grad 151.1 mmHg MV VTI Annulus 0.275 mMR PISA Radius 0.43 cm MV Area VTI 2.10 (4.0-6.0 cm2)MR EROA 0.06 cm2 MR Aliasing Velocity 0.35 m/s MR PISA 1.14 cm2 Pulmonary Valve PV Vmax 0.57 (0.5-1.5 m/s)RVOT Peak Gr.1.12 mmHg PV Peak Grad 1.3 mmHgRVOT Mean Gr.0.60 mmHg PV Mean Grad 0.8 mmHgRVOT VTI0.132 m PV VTI 0.143 mRVOT Vmax 0.53 m/s Tricuspid Valve TR Peak Grad 25.8 mmHgTR Vmax 2.54 m/s RA Pressure 3.00 mmHg RVSP (TR) 28.9 mmHg Ordered By: Sheila Shah DO CC: Dictated By: Lawrence Jarrell M.D. 11/15/20 1010 <Electronically signed by Lawrence Jarrell M.D. in OV> 11/15/20 1029 Transcribed By: Lawrence Jarrell MD This is privileged, confidential information intended only for the provider named. Any use or distribution by any person other than this provider is strictly prohibited. If you receive this report in error, please notify us immediately at [phone] and return the original report to us at the address above. Thank-you. Anesthesia Assessment and Plan Anesthesia History Personal History: No History of Anesthesia Complications Family History: No Family History of Anesthesia Complications Exercise Tolerance Exercise Tolerance: Metabolic Equivalents>4 Pertinent Negatives Pertinent Negatives: No Major Cardiovascular Symptoms or Complaints, No Major Pulmonary Symptoms or Complaints and No History of CVA/TIA Cardiac & Pulmonary Exam Cardiac Exam: Normal S1/S2 Heart Sounds Pulmonary Exam: Clear Bilateral Breath Sounds Implantable Cardiac Device Does patient have a Pacemaker or an ICD?: No Airway Exam Known Difficult Airway: No Mallampati Class: 2 Mouth Opening: Normal (> 3cm) Thyromental Distance: Greater than 3 cm Neck Range of Motion: Full ROM Neck Circumference: Normal Teeth Condition: Normal Dentition Airway Comments: Past history of 50ml of Bile in airway during last Colonoscopy. ASA Classification ASA Score: ASA 2 Emergency Case?: No NPO Status NPO Status: NPO Clears >2 hours, Solids >8 hours Anesthesia Plan Resuscitation Status: Full Code Anesthesia Technique: General Anesthesia Airway Planned: Endotracheal Tube Monitors Used: Standard Monitors Preoperative Comments:: Past history of 50ml of Bile in airway during last Colonoscopy, also vomited in PACU postop. Patient feeling good today, however due to past event I discussed my wish to edge on the side of safety and intubate today for airway protection during this colonoscopy.
--- NOTE | 2024-02-03 14:24 | W.ANESPOSTOP ---
Postoperative Evaluation Date, Time and Location Date Performed: 02/03/24 Time Performed: 14:20 Patient Location: PACU Vital Signs Most Recent Imported Vital Signs: Most Recent Vital Signs Temp Pulse Resp BP Pulse Ox 36.6 C 66 14 141/79 H 98 02/03/24 14:16 02/03/24 14:15 02/03/24 14:15 02/03/24 14:15 02/03/24 14:15 Pain Score Most Recent Pain Score: Most Recent Pain Score Pain Level 0 02/03/24 14:16 Assessment Mental Status: Awake (Alert & Oriented to Patient Baseline) Airway and Respiratory Function: Patent airway with normal (patient baseline) respiratory exam Cardiovascular Function: Hemodynamically Stable Hydration Status: Adequately Hydrated Nausea & Vomiting: No Nausea or Vomiting Pain: Pt. Denies Any Pain Peripheral Nerve Block: Patient did not receive a nerve block
== END 2024-02-03 15:06 | disposition home or self-care (01) ==
PROVIDERS: PCP Student in an Organized Health Care Education/Training Program; Visit Provider Surgery
PROC: 0DJD8ZZ Inspection of Lower Intestinal Tract, Via Natural or Artificial Opening Endoscopic (ICD-10-PCS; CPT 45378; principal; 2024-02-03 12:45)
DX: Z12.11 Encounter for screening for malignant neoplasm of colon (principal); K57.30 Diverticulosis of large intestine without perforation or abscess without bleeding; I10 Essential (primary) hypertension; Z86.0101 Personal history of adenomatous and serrated colon polyps
CPT/HCPCS: G0105; J1100; J2405; J2704; J3010

== ENCOUNTER 2025-01-15 12:00 | Outpatient (CLI) | payer MEDICARE, SELFPAY ==
[2025-01-15 11:57] LABS: ALT 28 U/L (14-59); AST 21 U/L (15-37); Albumin 4.2 g/dL (3.4-5.0); Alkaline Phosphatase 58 U/L (46-116); Anion Gap 7.9 mmol/L (3-11); BUN 15 mg/dL (7-18); Bilirubin, Total 0.7 mg/dL (0.2-1.0); CO2 31.1 mmol/L (21.0-32.0); Calcium 9.1 mg/dL (8.5-10.1); Calculated LDL 149 mg/dL (<100); Chloride 101 mmol/L (98-107); Cholesterol 239 mg/dL (<200); Estimated GFR 77.75 (mL/min/1.73m2); Glucose 97 mg/dL (74-106); HDL Cholesterol 77 mg/dL (>or=50); Potassium 4.6 mmol/L (3.5-5.1); Sodium 140 mmol/L (136-145); Total Protein 7.3 g/dL (6.4-8.2); Triglyceride 69 mg/dL (<150); Vitamin D 25 Total 61 ng/mL (30-100)
== END 2025-01-15 12:01 | disposition home or self-care (01) ==
LOC: LBO 12:00
PROVIDERS: PCP Nurse Practitioner Family; Visit Provider Nurse Practitioner Family
DX: E55.9 Vitamin D deficiency, unspecified (principal); I10 Essential (primary) hypertension; E78.5 Hyperlipidemia, unspecified
CPT/HCPCS: 36415; 80053; 80061; 82306

== ENCOUNTER → 2025-03-02 02:00 | Outpatient (CLI) | payer MEDICARE, BC, SELFPAY ==
--- NOTE | 2025-03-02 08:30 | DI.MAMMO_ITS ---
Exam(s) MAMMO SCREENING EXAM: MAMMO SCREENING CLINICAL HISTORY: screening,Z12.39 TECHNIQUE: Mammograms were interpreted according to the usual protocol including computer analysis with CAD system, tomosynthesis and C-view imaging. COMPARISON: 2017 through 2022 FINDINGS: The breasts are composed of scattered fibroglandular densities, Breast Density category B. No suspicious masses or suspicious microcalcifications are seen. No skin thickening or abnormal axillary lymph nodes are seen. There has been no significant change from prior exams. IMPRESSION: BI-RADS Category 1, Negative mammogram Yearly screening mammography is recommended. Breast Density - Category B - There are scattered areas of fibroglandular density. Breast density Category C or D implies that the patient has dense breast tissue. Dense breast tissue can make it harder to find cancer on a mammogram. Dense breast tissue is also associated with an increased risk of breast cancer. This information about the result of the mammogram report was provided to the patient to raise their awareness. Use this report when you speak with the patient about their risks for breast cancer, which includes their family history. At that time, you may recommend additional screening tests (Ultrasound or MRI) as these tests may add significant information. A negative radiographic report should not delay biopsy if a dominant or clinically suspicious mass is present. Up to ten percent of cancers are not identified on mammography. A negative report may reinforce clinical impression. Adenosis and dense breasts may obscure an underlying neoplasm. False positive reports average 6 to 10%. Patient will receive a letter notifying them of these results.
== END ==
LOC: DI 02:00
PROVIDERS: PCP Nurse Practitioner Family; Visit Provider Nurse Practitioner Family
DX: Z12.31 Encounter for screening mammogram for malignant neoplasm of breast (principal); R92.323 Mammographic fibroglandular density, bilateral breasts
CPT/HCPCS: 77063; 77067